=== PATIENT | female | born 1940 | race Caucasian/White ===

== ENCOUNTER 2017-01-17 18:38 | Emergency (ER) | payer MEDICARE ==
[~2017-01-17] VITALS: Ht 165.1 cm; Wt 44.0 kg
[~2017-01-17 18:38] MED LIST: ALENDRONATE70 MG PO; ASPIRIN LOW81 M1 PO; BACTROBAN2 % EX; CIPROFLOXACN500 MG PO; DIFLUCAN150 MG OR; DIP/TET TOXOID0.5 ML IM; FLONASE NASAL50 MCG; FLORASTOR250 M1 PO; FLUARIX QUADRIV1 IN1 IM; FLUCONAZOLE150 MG PO; FLUZONE SPLT1 M1 IM; GNP RED YEAST RICE PO; KEFLEX500 MG PO; LEVOTHYROXIN25 MC1 PO; LEVOTHYROXIN50 MCG PO; MOBIC7.5 M1 PO; MULTI PO; NORCO1 TA1 PO; NYSTATIN100000 M1 OR; NYSTATIN100000 M1 PO; PRENATAL1 TAB; PX OMEPRAZOLE20 MG PO; RED YEAS1; TET/DIP TOX1 ML IM; TRAMADOL HCL50 MG PO; ULTRAM50 M1 PO
[2017-01-17 19:36] LABS: HEMATOCRIT 34.4 % (37.0-47.0); HEMOGLOBIN 11.6 g/dl (12.0-16.0); IMMATURE GRANULOCYTES 0.7 % (0.0-1.0); MEAN CELL VOLUME 89.6 fL CALC (80.0-100.0); MEAN CORPUSCULAR HGB 30.2 pG CALC (26.0-32.0); MEAN CORPUSCULAR HGB CONC 33.7 g/L CALC (32.0-36.0); NEUT# 16.91 thou/uL (2.00-7.15); RED BLOOD COUNT 3.84 mill/uL (4.20-5.60); RED CELL DISTRI WIDTH 12.9 % (11.5-15.5)
[2017-01-17 19:47] LABS: ALBUMIN 3.3 g/dL (3.2-5.0); ALKALINE PHOSPHATASE 85 u/l (38-126); ANION GAP 14 (6-22 (CALC)); BILIRUBIN, TOTAL 0.9 mg/dL (0.0-1.4); BUN 10 mg/dL (8-23); BUN/CREATININE RATIO 13 (12-20 (CALC)); CALCIUM 8.3 mg/dL (8.4-10.2); CARBON DIOXIDE 25 mmol/l (22-30); CHLORIDE 98 mmol/l (95-108); CREATININE 0.7 mg/dL (0.5-1.0); GFR > 60 ML/MIN (>=60 (CALC)); GFR FOR AFR.AMER. > 60 ML/MIN (>=60 (CALC)); GLUCOSE 167 mg/dL (82-115); POTASSIUM 3.9 mmol/l (3.5-5.1); SGOT/AST 22 u/l (9-36); SGPT/ALT 29 u/l (11-66); SODIUM 134 mmol/l (137-146); TOTAL PROTEIN 5.7 g/dL (6.3-8.2)
[2017-01-17 19:49] LABS: URINE BILIRUBIN - DIPSTICK NEGATIVE (NEGATIVE); URINE BLOOD DIPSTICK MODERATE (NEGATIVE); URINE CLARITY CLEAR; URINE COLOR YELLOW; URINE GLUCOSE - DIPSTICK NEGATIVE (NEGATIVE); URINE KETONE NEGATIVE (NEGATIVE); URINE LEUK ESTERASE NEGATIVE (NEGATIVE); URINE NITRITE - DIPSTICK NEGATIVE (Negative); URINE PH 5.5 (4.5-8.0); URINE PROTEIN - DIPSTICK 30 mg/dL (NEG-TRACE); URINE SPECIFIC GRAVITY >=1.030; URINE UROBILINOGEN - DIPSTICK 0.2 E.U./dL (0.2)
[2017-01-17 19:57] LABS: INFLUENZA A NONE DETECTED (NONE DETECT); INFLUENZA B NONE DETECTED (NONE DETECT)
[2017-01-17 20:47] LABS: URINE SQUAMOUS EPITHELIAL CELL FEW EPI/hpf (0-FEW)
[2017-01-17] MEDS ORDERED: AUGMENTIN875TAB PO (21:46)
[2017-01-17 22:08] VITALS: BP 124/64
== END 2017-01-17 22:08 | disposition home or self-care (01) ==
LOC: ED 18:38
PROVIDERS: Emergency Medicine; Family Medicine
DX: J02.0 Streptococcal pharyngitis (principal); J40 Bronchitis, not specified as acute or chronic; F17.210 Nicotine dependence, cigarettes, uncomplicated; R50.9 Fever, unspecified; R11.2 Nausea with vomiting, unspecified; R05 Cough; D72.829 Elevated white blood cell count, unspecified

== ENCOUNTER 2021-05-24 18:50 | Emergency (ER) | payer MEDICARE ==
[~2021-05-24] VITALS: Ht 167.6 cm; Wt 40.0 kg
[~2021-05-24 18:50] MED LIST changes: +AUGMENTIN875TAB PO
[2021-05-24] MEDS ORDERED: VOLTAREN75 MG PO (21:43)
[2021-05-24] MEDS ORDERED: LORTAB5 PO (21:43)
[2021-05-24 21:45] VITALS: BP 136/85
== END 2021-05-24 22:01 | disposition home or self-care (01) ==
LOC: ED 18:50
DX: S72.001A Fracture of unspecified part of neck of right femur, initial encounter for closed fracture (principal); S00.81XA Abrasion of other part of head, initial encounter; S80.211A Abrasion, right knee, initial encounter; F17.200 Nicotine dependence, unspecified, uncomplicated; W01.0XXA Fall on same level from slipping, tripping and stumbling without subsequent striking against object, initial encounter; Y92.009 Unspecified place in unspecified non-institutional (private) residence as the place of occurrence of the external cause; Z96.641 Presence of right artificial hip joint

== ENCOUNTER 2023-05-14 17:11 | Emergency (ER) | payer MEDICARE ==
[~2023-05-14] VITALS: Ht 167.6 cm; Wt 36.3 kg
[~2023-05-14 17:11] MED LIST changes: +LORTAB5 PO; +VOLTAREN75 MG PO
[2023-05-14 19:29] VITALS: BP 158/79
[2023-05-14 19:30] VITALS: BP 142/72
[2023-05-14 19:45] VITALS: BP 139/74
[2023-05-14 19:48] LABS: BASO% 0.9 % (0-3); EOS% 2.6 % (0-8); HEMOGLOBIN 13.7 g/dl (12.0-16.0); IMMATURE GRANULOCYTES 0.1 % (0.0-5.0); LYMPH% 25.1 % (15-41); MEAN CELL VOLUME 91.1 fL CALC (80.0-100.0); MEAN CORPUSCULAR HGB 29.7 pG CALC (26.0-32.0); MEAN CORPUSCULAR HGB CONC 32.6 g/dL CAL (32.0-36.0); MONO% 8.9 % (2-13); NEUT# 4.39 thou/uL (2.00-7.15); NEUT% 62.4 % (42-76); RED BLOOD COUNT 4.61 mill/uL (4.20-5.60); RED CELL DISTRI WIDTH 13.8 % (11.5-15.5)
[2023-05-14 19:58] LABS: ALBUMIN 3.9 g/dL (3.2-5.0); ALKALINE PHOSPHATASE 65 u/l (38-126); ANION GAP 7 (6-22 (CALC)); BUN 14 mg/dL (8-23); BUN/CREATININE RATIO 16 (12-20 (CALC)); CARBON DIOXIDE 34 mmol/l (22-30); CHLORIDE 104 mmol/l (95-108); CREATININE 0.9 mg/dL (0.5-1.0); GFR FOR AFR.AMER. > 60 ML/MIN (>=60 (CALC)); GFR OTHER RACES 60 ML/MIN (>=60 (CALC)); POTASSIUM 4.5 mmol/l (3.5-5.1); SGOT/AST 24 u/l (9-36); SODIUM 140 mmol/l (137-146); TOTAL PROTEIN 6.3 g/dL (6.3-8.2)
[2023-05-14 20:13] LABS: BILIRUBIN, TOTAL 0.5 mg/dL (0.02-1.3)
[2023-05-14 20:16] LABS: URINE BILIRUBIN - DIPSTICK Negative (NEGATIVE); URINE BLOOD DIPSTICK Negative (NEGATIVE); URINE GLUCOSE - DIPSTICK Negative (NEGATIVE); URINE KETONE Negative (NEGATIVE); URINE LEUK ESTERASE Trace (NEGATIVE); URINE NITRITE - DIPSTICK Negative (Negative); URINE PH 5.5 (4.5-8.0); URINE PROTEIN - DIPSTICK Negative (NEG-TRACE); URINE SPECIFIC GRAVITY 1.025; URINE UROBILINOGEN - DIPSTICK 0.2 E.U./dL (0.2)
[2023-05-14 20:18] LABS: URINE COLOR Yellow
[2023-05-14 20:21] VITALS: BP 150/62
[2023-05-14 21:37] VITALS: BP 150/62
== END 2023-05-14 21:37 | disposition home or self-care (01) ==
LOC: ED 17:11
PROVIDERS: Family Medicine
DX: I10 Essential (primary) hypertension (principal); F17.200 Nicotine dependence, unspecified, uncomplicated

== ENCOUNTER 2024-06-09 11:50 | Observation (INO) | payer MEDICARE ==
[~2024-06-09] VITALS: Ht 167.6 cm; Wt 38.0 kg
[2024-06-09] VITALS (24 sets, daily range): BP systolic 91–154; BP diastolic 48–111
[2024-06-09] MEDS ORDERED: methylPREDNISolone SODIUM SUCC 125 MG/2 ML SDV IV ONE (12:30)
[2024-06-09] MEDS ORDERED: IPRATROPIUM-Albuterol 0.5MG-2.5MG/3 ML NEB ONE ×3 (12:30)
[2024-06-09 12:32] LABS: BASO% 0.1 % (0-3); HEMATOCRIT 46.7 % (37.0-47.0); HEMOGLOBIN 15.2 g/dl (12.0-16.0); IMMATURE GRANULOCYTES 0.2 % (0.0-5.0); LYMPH% 8.7 % (15-41); MEAN CELL VOLUME 92.7 fL CALC (80.0-100.0); MEAN CORPUSCULAR HGB 30.2 pG CALC (26.0-32.0); MEAN CORPUSCULAR HGB CONC 32.5 g/dL CAL (32.0-36.0); NEUT# 13.74 thou/uL (2.00-7.15); RED BLOOD COUNT 5.04 mill/uL (4.20-5.60); RED CELL DISTRI WIDTH 12.9 % (11.5-15.5)
[2024-06-09 12:39] LABS: ALBUMIN 3.9 g/dL (3.2-5.0); CREATININE 0.8 mg/dL (0.5-1.0); POTASSIUM 4.1 mmol/l (3.5-5.1); TOTAL PROTEIN 6.4 g/dL (6.3-8.2)
[2024-06-09 12:41] LABS: BILIRUBIN, TOTAL 1.1 mg/dL (0.02-1.3)
[2024-06-09 14:15] LABS: URINE BLOOD DIPSTICK Negative (NEGATIVE); URINE GLUCOSE - DIPSTICK Negative (NEGATIVE); URINE KETONE 40 mg/dL (NEGATIVE); URINE LEUK ESTERASE Negative (NEGATIVE); URINE NITRITE - DIPSTICK Negative (Negative); URINE PH 5.5 (4.5-8.0); URINE PROTEIN - DIPSTICK 100 mg/dL (NEG-TRACE); URINE SPECIFIC GRAVITY 1.025; URINE UROBILINOGEN - DIPSTICK 0.2 E.U./dL (0.2)
[2024-06-09 14:18] LABS: URINE COLOR Yellow; URINE EPITHELIAL CELLS FEW EPI/hpf (0-FEW)
[2024-06-09 14:19] LABS: URINE CALCIUM OXALATE CRYSTALS FEW lpf
[2024-06-09] MEDS ORDERED: SODIUM CHLORIDE 0.9% 1,000 ML IV ONE ×2 (16:00→18:20)
[2024-06-09] MEDS ORDERED: SODIUM CHLORIDE 0.9% 1,000 ML IV PRN (19:45)
[2024-06-09] MEDS ORDERED: MAGNESIUM HYDROXIDE 30 ML UDC PO PRN (19:45)
[2024-06-09] MEDS ORDERED: IPRATROPIUM-Albuterol 0.5MG-2.5MG/3 ML NEB PRN (19:45)
[2024-06-09] MEDS ORDERED: ACETAMINOPHEN 325 MG/TAB PO PRN (19:45)
[2024-06-09] MEDS ORDERED: ONDANSETRON HCl 4 MG/2 ML SDV IV PRN (20:00)
[2024-06-09] MEDS ORDERED: DOXYCYCLINE HYCLATE 100 MG in SODIUM CHLORIDE 0.9% 100 ML IV SCH (21:00)
[2024-06-09] MEDS ORDERED: methylPREDNISolone Sod Succ 40 MG/ML SDV IV SCH (21:00)
[2024-06-09] MEDS ORDERED: ENOXAPARIN SODIUM 40 MG/0.4 ML SYR SC SCH (21:00)
[2024-06-10 00:24] VITALS: BP 102/50
[2024-06-10 04:00] VITALS: BP 134/60
[2024-06-10 05:43] LABS: BASO% 0.2 % (0-3); IMMATURE GRANULOCYTES 0.2 % (0.0-5.0); LYMPH% 13.7 % (15-41); MEAN CELL VOLUME 93.3 fL CALC (80.0-100.0); MEAN CORPUSCULAR HGB 31.1 pG CALC (26.0-32.0); MEAN CORPUSCULAR HGB CONC 33.3 g/dL CAL (32.0-36.0); MONO% 2.7 % (2-13); NEUT# 4.87 thou/uL (2.00-7.15); NEUT% 83.2 % (42-76); RED BLOOD COUNT 4.18 mill/uL (4.20-5.60); RED CELL DISTRI WIDTH 12.9 % (11.5-15.5)
[2024-06-10 05:46] LABS: CREATININE 0.6 mg/dL (0.5-1.0); MAGNESIUM 1.9 mg/dL (1.6-2.3); POTASSIUM 4.2 mmol/l (3.5-5.1)
[2024-06-10 05:49] LABS: ALBUMIN 2.8 g/dL (3.2-5.0); BILIRUBIN, TOTAL 0.5 mg/dL (0.02-1.3); TOTAL PROTEIN 4.8 g/dL (6.3-8.2)
[2024-06-10 07:08] VITALS: BP 125/54
[2024-06-10] MEDS ORDERED: DOXYCYCLINE HYCLATE 100 MG in SODIUM CHLORIDE 0.9% 100 ML IV SCH (09:00)
[2024-06-10 10:47] VITALS: BP 162/56
[2024-06-10 19:27] VITALS: BP 137/57
[2024-06-10] MEDS ORDERED: ENOXAPARIN SODIUM 30 MG/0.3 ML INJ SC SCH (21:00)
[2024-06-11] VITALS (7 sets, daily range): BP systolic 120–178; BP diastolic 44–96
[2024-06-11 04:54] LABS: BASO% 0.1 % (0-3); HEMATOCRIT 40.8 % (37.0-47.0); HEMOGLOBIN 13.2 g/dl (12.0-16.0); IMMATURE GRANULOCYTES 0.2 % (0.0-5.0); LYMPH% 5.5 % (15-41); MEAN CELL VOLUME 95.3 fL CALC (80.0-100.0); MEAN CORPUSCULAR HGB 30.8 pG CALC (26.0-32.0); MEAN CORPUSCULAR HGB CONC 32.4 g/dL CAL (32.0-36.0); MONO% 4.4 % (2-13); NEUT# 12.37 thou/uL (2.00-7.15); NEUT% 89.8 % (42-76); RED BLOOD COUNT 4.28 mill/uL (4.20-5.60)
[2024-06-11 05:05] LABS: ALBUMIN 2.9 g/dL (3.2-5.0); BILIRUBIN, TOTAL 0.5 mg/dL (0.02-1.3); CREATININE 0.6 mg/dL (0.5-1.0); MAGNESIUM 1.9 mg/dL (1.6-2.3); POTASSIUM 3.6 mmol/l (3.5-5.1); TOTAL PROTEIN 5.1 g/dL (6.3-8.2)
[2024-06-11] MEDS ORDERED: PREDNISONE10 MG PO (09:29)
[2024-06-11] MEDS ORDERED: VIBRAMYCIN100 M2 PO (09:29)
[2024-06-11] MEDS ORDERED: guaiFENesin 200 MG/10 ML UDC PO PRN (13:25)
[2024-06-12] VITALS: BP 142/79; BP 176/96
[2024-06-12 00:21] VITALS: BP 176/96
[2024-06-12 04:00] VITALS: BP 142/79
[2024-06-12 04:38] VITALS: BP 142/79
[2024-06-12 07:02] VITALS: BP 137/63
[2024-06-12 10:29] VITALS: BP 157/75
[2024-06-12] MEDS ORDERED: ALBUTEROL SUL0.083 % IN (10:52)
[2024-06-12] MEDS ORDERED: VENTOLIN HFA108 MCG IN (13:03)
== END 2024-06-12 13:30 ==
LOC: ED 11:50 → ED-I 18:40 → ED 18:56 → MS2 18:57
PROVIDERS: Emergency Medicine; Nurse Practitioner Family; ADMIT Internal Medicine; ATTEND Internal Medicine
DX: J44.1 Chronic obstructive pulmonary disease with (acute) exacerbation (principal); E87.20 Acidosis, unspecified; E03.9 Hypothyroidism, unspecified; J96.10 Chronic respiratory failure, unspecified whether with hypoxia or hypercapnia; I10 Essential (primary) hypertension; Z99.81 Dependence on supplemental oxygen; Z87.891 Personal history of nicotine dependence; Z20.822 Contact with and (suspected) exposure to COVID-19
CPT/HCPCS: J0696; J1650; Q9967